=== PATIENT | male | born 1995 | race African-American/Black ===

== ENCOUNTER 2017-08-19 00:21 | Emergency (ER) | payer MEDICAID ==
[~2017-08-19] VITALS: Ht 185.4 cm; Wt 81.6 kg
[2017-08-19] MEDS ORDERED: Lidocaine 1% MPF 10mg/ml 5ml INJ ONE (00:45)
[2017-08-19] MEDS ORDERED: Azithromycin 250mg tab ORAL ONE (00:45)
--- NOTE | 2017-08-19 00:46 | Emergency Room Report ---
History of Present Illness General Chief Complaint: Abdominal Pain Source: Patient Present Illness HPI Is a 21-year-old male who has no past medical history. He presents with chief complaint is penile discharge. He said onset today. It was greenish in color. Dysuria. No fever or chills. Allergies: Coded Allergies: No Known Allergies (Unverified , 08/19/17) Patient History Past Medical History: none, see triage record, old chart reviewed Past Surgical History: none Pertinent Family History: none Social History: Denies: smoking Immunizations: other Reviewed Nursing Documentation: PMH: Agreed, PSxH: Agreed Nursing Documentation-PMH Past Medical History: No Stated History Review of Systems Eye: Denies: eye pain, blurred vision ENT: Denies: ear pain, nose congestion, throat swelling Respiratory: Denies: cough, shortness of breath Cardiovascular: Denies: chest pain, palpitations Gastrointestinal: Denies: abdominal pain, diarrhea, nausea, vomiting Musculoskeletal: Denies: back pain, joint pain Skin: Denies: rash Neurological: Denies: headache, numbness Endocrine: Denies: increased thirst, increased urine Hematologic/Lymphatic: Denies: easy bruising All Other Systems: negative except mentioned in HPI Physical Exam Vital Signs Date Time Temp Pulse Resp B/P (MAP) Pulse Ox O2 Delivery O2 Flow Rate FiO2 08/19/17 00:31 97.7 80 20 114/68 97 Room Air vitals normal Sp02 EP Interpretation: reviewed, normal General Appearance: well appearing, no apparent distress, alert Head: normocephalic, atraumatic Eyes: bilateral eye PERRL, bilateral eye EOMI ENT: hearing grossly normal, normal pharynx Neck: full range of motion, supple, no meningismus Respiratory: chest non-tender, lungs clear, normal breath sounds Cardiovascular #1: regular rate, rhythm, no murmur Gastrointestinal: normal bowel sounds, non tender, no mass, no organomegaly, no bruit, non-distended Genitourinary: other - yellowish/greenish dc Musculoskeletal: back normal, gait/station normal, normal range of motion Neurologic: alert, oriented x3 Psychiatric: mood/affect normal Skin: warm/dry Medical Decision Making Diagnostic Impression: Primary Impression: Urethritis, gonococcal, acute ER Course Patient with a urethritis that is consistent with gonorrhea. We'll go injury. His partner is here with the same thing. She is asymptomatic. I recommend outpatient testing for HIV, hepatitis, syphilis and of STD. This can be done anonymously. Last Vital Signs Date Time Temp Pulse Resp B/P (MAP) Pulse Ox O2 Delivery O2 Flow Rate FiO2 08/19/17 00:31 97.7 80 20 114/68 97 Room Air Status: improved Disposition: HOME, SELF-CARE Condition: Stable Additional Instructions: Followup with your Dr. in 7 days as needed. Recommend outpatient testing for HIV, hepatitis, syphilis and other STDs. This can be done anonymously. Return if worse. HERNANDEZ NICHOLSON M.D. Aug 19, 2017 00:46
[2017-08-19 01:13] VITALS: BP 125/71
[2017-08-19 01:21] VITALS: BP 125/71
== END 2017-08-19 01:20 | disposition home or self-care (01) ==
LOC: EMR 00:45
DX: R36.9 Urethral discharge, unspecified (principal); A54.01 Gonococcal cystitis and urethritis, unspecified
CPT/HCPCS: 96372; 99283; J0696; Q0144